=== PATIENT | female | born 2000 | race Caucasian/White ===

== ENCOUNTER 2024-09-27 19:55 | Emergency (ER) | payer SELFPAY ==
[2024-09-27 20:16] VITALS: BP 126/85; PULSE 111; RESP 16; TEMP 36.8; O2SAT 99; BMI 28.1
--- NOTE | 2024-09-27 20:59 | ED_ITS ---
HPI - Abdominal Pain General Chief Complaint: Abdominal Pain Stated Complaint: vomiting, nausea, diarrhea, acid reflux Time Seen by Provider: 09/27/24 20:24 Source: patient Mode of arrival: Ambulatory History of Present Illness HPI narrative: 24-year-old female with no reported past medical history presents with 3 days of nausea, acid reflux. Reports 1-2 episodes of vomiting over the last 3 days, intermittent diarrhea. States that she thinks that it may be related to a hernandez that she ate 3 days ago. Also reporting acid reflux symptoms. Symptoms not improved with Tums. On oral OCPs, states that is unlikely but she is not certain. Related Data Previous Rx's Medication Instructions Recorded ondansetron 4 mg disintegrating 4 mg PO Q8H PRN nausea and 09/27/24 tablet vomiting #30 tabs Allergies Allergy/AdvReac Type Severity Reaction Status Date / Time No Known Drug Allergies Allergy Verified 09/27/24 20:19 Patient History Social History Smoking Status: Current every day smoker Smoking Status: Current every day smoker tobacco type: vaping Exam Initial Vital Signs Initial Vital Signs: Vital Signs Temperature 98.2 F 09/27/24 20:16 Pulse Rate 111 H 09/27/24 20:16 Respiratory Rate 16 09/27/24 20:16 Blood Pressure 126/85 09/27/24 20:16 Pulse Oximetry 99 09/27/24 20:16 Oxygen Delivery Method Room Air 09/27/24 20:16 Const: Awake, alert, no acute distress, nontoxic appearing Cardiac: regular rate, regular rhythm RESP: unlabored, speaking in complete sentences without dyspnea GI: Soft, nontender, nondistended, no rebound, no guarding Skin: Warm, Dry, intact, no rashes Neuro: AO x3, CN II-XII grossly intact, moves all extremities Course Orders Ordered: ED Orders 09/27/24 21:08 CBC Auto Diff [Complete Blood Count AUTO DIFF] Stat CMP [Comprehensive Metabolic Panel] Stat Discontinued Medications Ondansetron HCl (Ondansetron 4 Mg Odt) 4 mg SL NOW ONE Stop: 09/27/24 20:59 Last Admin: 09/27/24 21:02 Dose: 4 mg Documented By: MPO Vital Signs Vital signs: Vital Signs - 8 hr 09/27/24 22:24 Temperature 98.6 F Pulse Rate 88 Respiratory Rate 20 Blood Pressure 120/80 Pulse Oximetry 100 Oxygen Delivery Method Room Air MDM - Abdominal Pain Lab Data 09/27/24 21:08 09/27/24 21:08 Labs: Lab Results 09/27/24 Range/Units 21:08 WBC 8.5 (4.5-11.0) X10^3/uL RBC 4.54 (4.0-5.2) X10^6/uL Hgb 13.9 (12.0-16.0) g/dL Hct 40.3 (36-46) % MCV 88.9 (80-100) fL MCH 30.6 (26-34) PG MCHC 34.4 (30-36) % RDW 12.9 (11.6-14.8) % Plt Count 264 (150-400) X10^3/uL Neut % (Auto) 60.0 (50-75) % Lymph % (Auto) 29.5 (25-40) % [place] % (Auto) 7.0 (3-14) % Eos % (Auto) 2.6 (2-4) % Baso % (Auto) 0.9 (0-2) % Neut # (Auto) 5100 (4742-4341) /uL Lymph # (Auto) 2500 (8418-9945) /uL [place] # (Auto) 600 (0-900) /uL Eos # (Auto) 200 (0-450) /uL Baso # (Auto) 100 (0-100) /uL Sodium 134 L (137-145) mmol/L Potassium 3.7 (3.4-5.1) mmol/L Chloride 102 (98-107) mmol/L Carbon Dioxide 26 (22-32) mmol/L BUN 9 (7-17) mg/dL Creatinine 0.78 (0.52-1.04) mg/dL Estimated GFR > 60 (>60) mL/min BUN/Creatinine Ratio 11.5 (6-22) Glucose 94 (70-100) mg/dL Calcium 9.4 (8.4-10.2) mg/dL Total Bilirubin 0.8 (0.2-1.3) mg/dL AST 26 (14-36) IU/L ALT 22 (<35) IU/L Alkaline Phosphatase 55 (38-126) U/L Total Protein 7.5 (6.3-8.2) g/dL Albumin 4.5 (3.5-5.0) g/dL Globulin 3.0 (1.7-4.1) g/dL Albumin/Globulin Ratio 1.5 (1.0-2.8) Point of care testing: Point of Care Testing Test Results Negative Urine Dip Bedside Urine Glucose Negative Bedside Urine Bilirubin - Negative Bedside Urine Ketone - Negative Urine Specific [place] 1.015 Bedside Urine Occult Blood - Negative Bedside Urine pH 6.5 Bedside Urine Protein - Negative Bedside Urine Urobilinogen - Negative Bedside Urine Nitrite - Negative Bedside Urine Leukocytes - Negative Esterase MDM Narrative Medical decision making narrative: Three days of symptoms. Abdomen soft, nontender. No previous abdominal surgeries. No indication for advanced imaging at this time. Blood work unremarkable. Patient given sublingual Zofran, no episodes of emesis witnessed in the emergency department. Point of care urinalysis and test negative. Patient informed of lab results. Zofran sent to pharmacy of choice. Discharge Plan Departure Patient Disposition: Home Clinical Impression: Nausea & vomiting Instructions: DI for Nausea -- Adult Activity Restrictions/Additional Instructions: Your blood work today looks great! You have no signs of infection, your electrolytes are normal. Your urinalysis did not show any signs of infection, in your urine was negative. Zofran has been sent to your pharmacy, this can help with nausea and vomiting. For acid reflux I also recommend taking a daily antacid such as omeprazole, pantoprazole, or Pepcid. All of these can be found [id number] at most grocery stores or pharmacies. Follow up with your primary care doctor if you do not notice improvement. Prescriptions: New ondansetron 4 mg tablet,disintegrating 4 mg PO Q8H PRN (Reason: nausea and vomiting) Qty: 30 0RF Referrals: Miscellaneous,Doctor, MD [Primary Care Provider] - Stand Alone Forms: Patient Portal/API/Survey
[2024-09-27] MEDS: ONDANSETRON 4 MG ODT SL (21:02)
[2024-09-27 21:26] LABS: Add Manual Diff / Slide Review NO; Basophils Absolute Auto 100 /uL (0-100); Basophils Percent Auto 0.9 % (0-2); Eosinophils Absolute Auto 200 /uL (0-450); Eosinophils Percent Auto 2.6 % (2-4); Hematocrit 40.3 % (36-46); Hemoglobin 13.9 g/dL (12.0-16.0); Lymphocytes Absolute Auto 2500 /uL (1100-4500); Lymphocytes Percent Auto 29.5 % (25-40); Mean Corpuscular HGB Conc 34.4 % (30-36); Mean Corpuscular Hemoglobin 30.6 PG (26-34); Mean Corpuscular Volume 88.9 fL (80-100); Monocytes Absolute Auto 600 /uL (0-900); Neutrophils Absolute Auto 5100 /uL (1500-7000); Platelet Count 264 X10^3/uL (150-400); Red Blood Cell Count 4.54 X10^6/uL (4.0-5.2); Red Cell Distribution Width 12.9 % (11.6-14.8); White Blood Cell Count 8.5 X10^3/uL (4.5-11.0)
[2024-09-27 21:35] LABS: Alanine Aminotransferase 22 IU/L (<35); Albumin 4.5 g/dL (3.5-5.0); Albumin Globulin Ratio 1.5 (1.0-2.8); Alkaline Phosphatase 55 U/L (38-126); Aspartate Aminotransferase 26 IU/L (14-36); BUN Creatinine Ratio 11.5 (6-22); Bilirubin Total 0.8 mg/dL (0.2-1.3); Blood Urea Nitrogen 9 mg/dL (7-17); Calcium 9.4 mg/dL (8.4-10.2); Carbon Dioxide 26 mmol/L (22-32); Chloride 102 mmol/L (98-107); Estimated Glomerular Filt Rate > 60 mL/min (>60); Glucose 94 mg/dL (70-100); HEMOLYSIS < 15 (0-50); Potassium 3.7 mmol/L (3.4-5.1); Sodium 134 mmol/L (137-145); Total Protein 7.5 g/dL (6.3-8.2)
[2024-09-27 22:24] VITALS: BP 120/80; PULSE 88; RESP 20; TEMP 37; O2SAT 100
== END 2024-09-27 22:25 | disposition home or self-care (01) ==
PROVIDERS: Emergency Provider Emergency Medicine
DX: R11.2 Nausea with vomiting, unspecified (principal); K21.9 Gastro-esophageal reflux disease without esophagitis; R19.7 Diarrhea, unspecified
CPT/HCPCS: 80053; 81003; 81025; 85025; 99283

== ENCOUNTER 2025-06-21 13:27 | Emergency (ER) | payer OTHER, SELFPAY ==
[2025-06-21 13:31] VITALS: BP 126/81; PULSE 123; RESP 20; TEMP 36.8; O2SAT 100; BMI 27.3
[2025-06-21 15:23] LABS: Add Manual Diff / Slide Review NO; Hematocrit 38.7 % (36-46); Hemoglobin 13.6 g/dL (12.0-16.0); Lymphocytes Absolute Auto 2100 /uL (1100-4500); Mean Corpuscular HGB Conc 35.1 % (30-36); Mean Corpuscular Hemoglobin 30.5 PG (26-34); Mean Corpuscular Volume 87.0 fL (80-100); Platelet Count 243 X10^3/uL (150-400)
[2025-06-21 15:33] LABS: UR Morphine/Opiate cutoff 300 Negative (Negative); Ur Specific Gravity Normal (Normal); Urine MDMA Negative (Negative); Urine Methamphetamines Negative (Negative); Urine Tetrahydrocannabinol Negative (Negative); Urine Tricyclic Antidepressant Negative (Negative)
[2025-06-21 15:35] LABS: Acetaminophen < 10 ug/mL (10-30); Alanine Aminotransferase 18 IU/L (<35); Albumin 4.7 g/dL (3.5-5.0); Albumin Globulin Ratio 1.6 (1.0-2.8); Alkaline Phosphatase 53 U/L (38-126); Blood Urea Nitrogen 12 mg/dL (7-17); Calcium 9.5 mg/dL (8.4-10.2); Carbon Dioxide 24 mmol/L (22-32); Chloride 102 mmol/L (98-107); Estimated Glomerular Filt Rate > 60 mL/min (>60); Ethanol (ETOH) < 10 mg/dL (<10); Globulin 2.9 g/dL (1.7-4.1); Glucose 85 mg/dL (70-99); HEMOLYSIS < 15 (0-50); Potassium 4.0 mmol/L (3.4-5.1); Salicylate < 1.0 mg/dL (<20); Sodium 135 mmol/L (137-145); Total Protein 7.6 g/dL (6.3-8.2)
--- NOTE | 2025-06-21 15:55 | ED.PSYCH ---
HPI - Psych General Chief Complaint: Psychiatric Symptoms Stated Complaint: Mood stabilizers, making her suicidal x 4 days Time Seen by Provider: 06/21/25 15:13 Source: patient Mode of arrival: Ambulatory History of Present Illness HPI Narrative: Patient here with boyfriend. Patient sees primary care for anxiety and possibly early diagnosis of bipolar. Patient here for suicide ideations for the past week. Has had waxing waning thoughts with plan. Has not done anything to harm herself. Patient was on Prozac last month but was inconsistent taking it. In the middle of month she has switched to Cymbalta which she took it consistently. And this past week she was placed on lamotrigine. No visual or auditory hallucinations. No prior history of mental health admissions. Patient is cooperative at this time. She admits still having waxing waning thoughts of harming herself. Boyfriend is at bedside. Related Data Home Medications ?Medication ?Instructions ?Recorded ?Confirmed control PO 07/23/24 06/27/25 Previous Rx's ?Medication ?Instructions ?Recorded propranolol 10 mg tablet 10 mg PO BID PRN anxiety #30 tabs 05/27/25 lamotrigine 25 mg tablet 25 mg PO DAILY 30 days #50 tabs 06/13/25 hydroxyzine HCl 25 mg tablet 25 mg PO QID PRN anxiety #20 tabs 06/21/25 hydroxyzine HCl 25 mg tablet 25 mg PO QID PRN itching #20 tabs 06/21/25 Allergies Allergy/AdvReac Type Severity Reaction Status Date / Time No Known Drug Allergies Allergy Verified 06/27/25 08:43 Review of Systems Review of Systems Narrative: GENERAL: Negative chills, fatigue, malaise, fever, sweats. HEENT: Negative sinus pain, ear pain, sore throat RESPIRATORY: Negative dyspnea, cough CARDIOVASCULAR: Negative chest pain, palpitations GASTROINTESTINAL: Negative vomiting, nausea, abdominal pain : Negative dysuria, frequency, hematuria MUSCULOSKELETAL: Negative muscle or bony pain SKIN: Negative rash, skin lesions NEUROLOGIC: Negative weakness, numbness Psychiatric: Positive anxiety positive SI ROS Unobtainable: All systems reviewed & are unremarkable except as noted in HPI and below Patient History Social History (Updated 05/02/25 @ 08:40 by Dolly Mack MA) marital status: unmarried,living together household members: significant other lives independently: No caregiver/support person: No housing: house pets and animals: Yes education level: high school occupational status: employed current occupational exposures/hazards: No 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 constance/sikh: [employer] special constance needs: No travel history: other sexual history: Multiple partners in the past leisure activities: exercise, music and games seatbelt use: always helmet use: Yes water heater temp set < 120 deg: Yes working smoke detector in home: No fire extinguisher in home: No carbon monox detector in home: No firearms in home: Yes firearms unloaded and locked: Yes do you feel safe at home: Yes quit status: quit date established second hand exposure: No alcohol intake: current substance use type: marijuana during the past year weight has: remained stable well-balanced diet: about half the time daily servings fruits/ve-4 caffeine: Yes eating out: 1-3 times/week Type(s) of exercise: walking and regular exercise frequency: 3-4 times per week duration: 30-45 minutes/day Smoking Status: Current every day smoker tobacco type: vaping Exam Narrative Exam Narrative: GENERAL: in no distress, not toxic not dyspneic HEAD: Normocephalic. EYES: Pupils equal round ENT: Mucous membranes moist. NECK: Trachea midline. CARDIOVASCULAR: Regular rate and rhythm RESPIRATORY: Clear to auscultation. Breath sounds equal bilaterally. No wheezes, rales, or rhonchi. GASTROINTESTINAL: Abdomen soft, non-tender EXTREMITIES: No gross deformities. BACK: No flank tenderness. NEURO: AOx4. Clear speech SKIN: Warm and dry PSYCH: Is slightly anxious, is cooperative, not agitated denies any auditory or visual hallucinations. Has been waxing waning with SI thoughts. Initial Vital Signs Initial Vital Signs: Vital Signs Temperature 98.3 F 06/21/25 13:31 Pulse Rate 123 H 06/21/25 13:31 Respiratory Rate 20 06/21/25 13:31 Blood Pressure 126/81 06/21/25 13:31 Pulse Oximetry 100 06/21/25 13:31 Oxygen Delivery Method Room Air 06/21/25 13:31 Course Orders Ordered: Discontinued Medications Hydroxyzine HCl (Hydroxyzine Hcl 25 Mg Tablet) 50 mg PO NOW ONE Stop: 06/21/25 20:10 Last Admin: 09/12/25 20:16 Dose: 50 mg Documented By: DKB Vital Signs Vital signs: Vital Signs - 8 hr 06/21/25 13:31 06/21/25 16:34 Temperature 98.3 F Pulse Rate 123 H 94 H Respiratory Rate 20 20 Blood Pressure 126/81 118/80 Pulse Oximetry 100 100 Oxygen Delivery Method Room Air Room Air MDM - Psych Lab Data 06/21/25 15:18 06/21/25 15:18 Labs: Lab Results 06/21/25 06/21/25 06/21/25 Range/Units 15:18 15:19 16:13 WBC 7.4 (4.5-11.0) X10^3/uL RBC 4.45 (4.0-5.2) X10^6/uL Hgb 13.6 (12.0-16.0) g/dL Hct 38.7 (36-46) % MCV 87.0 (80-100) fL MCH 30.5 (26-34) PG MCHC 35.1 (30-36) % RDW 12.9 (11.6-14.8) % Plt Count 243 (150-400) X10^3/uL Neut % (Auto) 62.2 (50-75) % Lymph % (Auto) 27.9 (25-40) % [place] % (Auto) 6.6 (3-14) % Eos % (Auto) 2.6 (2-4) % Baso % (Auto) 0.7 (0-2) % Neut # (Auto) 4600 (9033-7344) /uL Lymph # (Auto) 2100 (8815-0806) /uL [place] # (Auto) 500 (0-900) /uL Eos # (Auto) 200 (0-450) /uL Baso # (Auto) 100 (0-100) /uL Sodium 135 L (137-145) mmol/L Potassium 4.0 (3.4-5.1) mmol/L Chloride 102 (98-107) mmol/L Carbon Dioxide 24 (22-32) mmol/L BUN 12 (7-17) mg/dL Creatinine 0.71 (0.52-1.04) mg/dL Estimated GFR > 60 (>60) mL/min BUN/Creatinine Ratio 16.9 (6-22) Glucose 85 (70-99) mg/dL Calcium 9.5 (8.4-10.2) mg/dL Total Bilirubin 0.6 (0.2-1.3) mg/dL AST 24 (14-36) IU/L ALT 18 (<35) IU/L Alkaline Phosphatase 53 (38-126) U/L Total Protein 7.6 (6.3-8.2) g/dL Albumin 4.7 (3.5-5.0) g/dL Globulin 2.9 (1.7-4.1) g/dL Albumin/Globulin Ratio 1.6 (1.0-2.8) TSH 1.37 (0.47-4.68) uIU/mL Salicylates < 1.0 (<20) mg/dL U Opiates 300ng/mL cut Negative (Negative) Ur Oxycodone Screen Negative (Negative) Urine Methadone Screen Negative (Negative) Acetaminophen < 10 (10-30) ug/mL Ur Barbiturates Screen Negative (Negative) U Tricyclic Antidepress Negative (Negative) Ur Phencyclidine Scrn Negative (Negative) Ur Amphetamines Screen Negative (Negative) U Methamphetamines Scrn Negative (Negative) Ur MDMA Scrn (Ecstasy) Negative (Negative) U Benzodiazepines Scrn Negative (Negative) Urine Cocaine Screen Negative (Negative) U Marijuana (THC) Screen Negative (Negative) Urine pH Normal (Normal) Urine Specific [place] Normal (Normal) Ethyl Alcohol < 10 (<10) mg/dL Ur Creatinine Normal (Normal) SARS-CoV-2 (PCR) Negative (Negative) Point of Care Testing Test Results Negative Urine Dip Bedside Urine Glucose Negative Bedside Urine Bilirubin - Negative Bedside Urine Ketone - Negative Urine Specific [place] 1.005 Bedside Urine Occult Blood - Negative Bedside Urine pH 6.5 Bedside Urine Protein - Negative Bedside Urine Urobilinogen - Negative Bedside Urine Nitrite - Negative Bedside Urine Leukocytes - Negative Esterase MDM Narrative Medical decision making narrative: Patient here with boyfriend. Patient sees primary care for anxiety and possibly early diagnosis of bipolar. Patient here for suicide ideations for the past week. Has had waxing waning thoughts with plan. Has not done anything to harm herself. Patient was on Prozac last month but was inconsistent taking it. In the middle of month she has switched to Cymbalta which she took it consistently. And this past week she was placed on lamotrigine. No visual or auditory hallucinations. No prior history of mental health admissions. Patient is cooperative at this time. She admits still having waxing waning thoughts of harming herself. Boyfriend is at bedside. MDM After history and exam, social work consult CBC CMP test Differential considered: Includes but not limited to anxiety depression psychosis suicide ideation Medical records reviewed: No recent visit for this complaint Lab Test results independently reviewed as above. Pertinent findings: WBC 7.4 hemoglobin 13.6 sodium 135 potassium 4.0 glucose 85 drug screen negative Tylenol negative aspirin negative alcohol negative TSH 1.37 Consultations: Fe with the social work services 8:13 p.m.. DCR has completed patient evaluation. Not detainable. Patient has safety plan/contract. Patient denies any SI at this time. Patient does have primary care and therapist to follow up with as well. Crisis team will follow up with patient for the next 2 weeks. Re-evaluations: 8:20 p.m.. Patient feeling much better. She does agree with hydroxyzine treatment for anxiety tonight and prescription as well. She denies any SI at this time. Return precautions reviewed. Patient and boyfriend desire discharge home. They live together. Discussion: Appropriate for discharge home. Social work as well as DCR has evaluated patient. No SI at time of discharge. Return precautions reviewed. They desire discharge home. Diagnosis: Anxiety/suicide ideation Discharge Plan Departure Patient Disposition: Home Clinical Impression: Suicidal ideation, Anxiety Instructions: DI for Anxiety -- Adult, DI for Suicidal Ideation-Adult Activity Restrictions/Additional Instructions: Social work service at seeing you today. Please do continue home medications. Prescription for anxiety has been provided for you. Please see your family doctor next week for re-evaluation. Return if worse if any questions or concerns. Prescriptions: New hydroxyzine HCl 25 mg tablet 25 mg PO QID PRN (Reason: itching) Qty: 20 0RF hydroxyzine HCl 25 mg tablet 25 mg PO QID PRN (Reason: anxiety) Qty: 20 0RF No Action control PO lamotrigine 25 mg tablet 25 mg PO DAILY 30 Days Qty: 50 0RF Rx Instructions: Take 1 tab daily for 1 week, then increase to 2 tabs daily. propranolol 10 mg tablet 10 mg PO BID PRN (Reason: anxiety) Qty: 30 3RF Referrals: Vania Shoemaker MD [Primary Care Provider, Family Practice] Stand Alone Forms: Patient Portal/API, Work Release Note
--- NOTE | 2025-06-21 16:03 | CM.SWNOTE ---
Addendum entered by TONYA Galan 06/21/25 16:58: Addendum: Pt also included that she has been sleeping less as she is typically one who sleeps 8+ hours at night and naps during the afternoon, she noticed she has been sleeping less especially during the day. Pt reports she has been eating more and this is unusual for her. Pt reports her anxiety is ramping up, ANIMAL ECOLOGIST notified RN. ED ANIMAL ECOLOGIST requested DCR dispatch with [facility] Crisis Line, sent all appropriate clinicals to [facility] DCR Fax line. Fe Gimenez, [facility] Original Note: ED ANIMAL ECOLOGIST Assessment Note: ANIMAL ECOLOGIST - Truck Driver Teamster Assessment ANIMAL ECOLOGIST/Truck Driver Teamster Assessment Time Spent with Patient Start date 06/21/25 Visit Start Time 15:25 End date 06/21/25 Visit End Time 13:40 Total time Care 15 minutes Management spent on patient visit-in minutes Mental Health Screening Include Onset, Duration, Intensity Presenting Problem Patient presents to the ED with suicidal ideation, patient explains the thoughts to be all consuming for the past four days. Precipitating Event( Patient believes the suicidal thoughts could be s) attributed to her changes in medications. She says she started lamotrigine on 06/20. She also started cymbalta (stopped 06/13) and prozac (stopped 05/26) in the last few weeks. Patient Strengths Patient is communicative, seeking help, supported by her boyfriend, Edson. Current Behavioral [facility] Provider(s) Services. ph# . Include Facility, Provider, Ph. # Psych. Hx Mental Hx of anxiety, depression. Health and Chemical Dependency Family Hx of None reported. Behavioral Abuse Psychiatric None reported. Hospitalizations ( date(s)/location) Psychosocial Patient is a 25yo female, resident of [place] with information & her boyfriend and his parents. 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 Legal Concerns Legal Matters - None reported. Outstanding Issues Mental Status Orientation (Person/ AOx3 Place/Time) Stated Mood Apathetic Affect (Congruent Euthymic, incongruent with mood with Mood?) Thought Content - None reported, none assessed during meeting. Specify/Describe Obsessions, Delusions, Hallucinations Thought Processes ( Logical, coherent Logical-Coherent- Goal Directed- Detailed-Tangential- Circumstantial- Logical-Disorganized -Thought Blocking) Speech (Normal-Slow- Normal [id number]-Mxwu- Loud-Pressured) Motor (Normal- Normal Eigwtakpj-Dzmr-Gwkzw ) Insight (Good-Fair- Fair/limited Poor/Limited) Judgement (Good-Fair Fair -Poor/Limited) Impulse Control ( Impaired Adequate-Impaired) Memory (Immediate- Intact Recent-Remote, Impaired-Intact) Concentration ( Intact Intact-Impaired) Attention (Intact- Intact Impaired) Behavior ( Appropriate Appropriate- Inappropriate) Additional Comment Patient is calm, cooperative and communicative during assessment. Risk Assessment Suicidal Ideation ( Yes Plan) Homicidal Ideation ( No Plan) Comment [place]-SUICIDE SEVERITY RATING SCALE 1) Have you wished you were or wished you could go to sleep and not wake up? YES 2) Have you actually had any thoughts of killing yourself? YES 3) Have you been thinking about how you might do this? YES [Jumping from bridge, crashing my car, or overdosing on alcohol or over the counter medications] 4) Have you had these thoughts and had some intention of acting on them? YES 5) Have you started to work out or worked out the details of how to kill yourself? Do you intend to carry out this plan? YES 6) Have you ever done anything, started to do anything, or prepared to do anything to end your life? NO Intervention Intervention Reviewed chart and discussed with ED Provider pt's medical status and discharge needs. ED ANIMAL ECOLOGIST meets with patient. Patient endorses having all consuming suicidal ideation the last four days. She states she feels apathetic but does not want to , was previously nervous about being at home with these thoughts. ED ANIMAL ECOLOGIST and patient discuss goals of care. Patient explains they are not agreeable to receive inpatient behavioral health hospitalization at this time, was attempting to safety plan with this clinician with IOP and [facility] but pt still endorsing SI currently. At this time, it is the opinion of this ANIMAL ECOLOGIST that patient would benefit from inpatient psychiatric hospitalization for SI and medication stabilization. ANIMAL ECOLOGIST informs ED provider, Dr. El, who indicates agreement. ED Provider ordering DCR evaluation for second opinion due to pt high risk suicidal ideation but not being voluntary to appropriate treatment. ANIMAL ECOLOGIST informs SANIYA Pearl. Plan RA Plan Once patient is medically clear, ED staff will request DCR dispatch. JENIFFER [place]
[2025-06-21 16:14] LABS: TSH w/ Reflex to FT4 1.37 uIU/mL (0.47-4.68)
[2025-06-21 16:34] VITALS: BP 118/80; PULSE 94; RESP 20; O2SAT 100
[2025-06-21 16:53] LABS: COVID19 -Nasal RAPID Negative (Negative)
[2025-06-21 20:18] VITALS: BP 131/85; PULSE 100; RESP 16; O2SAT 100
== END 2025-06-21 20:35 | disposition home or self-care (01) ==
PROVIDERS: Emergency Medicine; Emergency Provider Emergency Medicine; PCP Student in an Organized Health Care Education/Training Program
DX: R45.851 Suicidal ideations (principal); F41.9 Anxiety disorder, unspecified
CPT/HCPCS: 80053; 80305; 80320; 80329; 81003; 81025; 84443; 85025; 87635; 99284; A9270; G0480